=== PATIENT | male | born 1990 | race Caucasian/White ===

== ENCOUNTER 2022-12-15 08:36 | Emergency (ER) | payer OTHER ==
[2022-12-15 08:43] VITALS: BP 110/73; PULSE 74; RESP 18; TEMP 97.8; BMI 28.5
[2022-12-15] MEDS ORDERED: ACETAMINOPHEN 500 MG TABLET (FP) PO ONE (09:52)
[2022-12-15] MEDS ORDERED: IBUPROFEN 400 MG TABLET (FP) PO ONE ×2 (09:52→09:54)
[2022-12-15] MEDS ORDERED: ACETAMINOPHEN 500 MG TABLET (FP) ONE (09:55)
== END 2022-12-15 10:16 | disposition home or self-care (01) ==
LOC: JERFT 08:36 → JER 08:36 → JERFT 10:16
DX: M54.2 Cervicalgia (principal); M25.511 Pain in right shoulder; M54.50 Low back pain, unspecified; V43.12XA Car passenger injured in collision with other type car in nontraffic accident, initial encounter
CPT/HCPCS: 99283-25